=== PATIENT | male | born 1935 | race Caucasian/White ===

== ENCOUNTER 2017-04-20 05:53 | Day surgery (SDC) | payer OTHER ==
[~2017-04-20] VITALS: Ht 172.7 cm; Wt 98.0 kg
[~2017-04-20 05:53] MED LIST: ALLOPURINOL100 MG PO; CENTRUM SILVER1 EAC5 PO; GLIPIZIDE5 MG PO; LANTUS 3 M100 UNITS1 SC
[2017-04-20 06:47] VITALS: BP 194/91
[2017-04-20 06:55] LABS: POINT-OF-CARE METER ID UU14174212
[2017-04-20 09:43] LABS: POINT-OF-CARE METER ID UU13113675
[2017-04-20 10:15] VITALS: BP 184/79
== END 2017-04-20 10:38 | disposition home or self-care (01) ==
LOC: SDC 05:53
PROVIDERS: Ophthalmology
DX: E11.319 Type 2 diabetes mellitus with unspecified diabetic retinopathy without macular edema (principal); H33.312 Horseshoe tear of retina without detachment, left eye; H43.12 Vitreous hemorrhage, left eye; E11.22 Type 2 diabetes mellitus with diabetic chronic kidney disease; N18.9 Chronic kidney disease, unspecified; Z79.4 Long term (current) use of insulin; Z79.84 Long term (current) use of oral hypoglycemic drugs
CPT/HCPCS: 82948; J0360; J0690; J0713; J3300